=== PATIENT | female | born 1990 | race Hispanic/Latino ===

== ENCOUNTER 2018-02-06 10:10 | Day surgery (SDC) | payer BC ==
[2018-02-06] MEDS ORDERED: Lactated Ringer's 500 ML IV ONE ×2 (11:14→12:28)
[2018-02-06] MEDS ORDERED: Propofol 10 mg/ml Inj (20 ML) ONE ×2 (11:20→11:43)
[2018-02-06 11:35] VITALS: BMI 24.2
[2018-02-06 12:06] VITALS: TEMP 98.2
[2018-02-06 12:30] VITALS: O2SAT 100
[2018-02-06 13:13] VITALS: BP 101/48; PULSE 78; RESP 12
== END 2018-02-06 13:12 | disposition home or self-care (01) ==
LOC: C.ENDO 10:10
PROVIDERS: ATTEND Internal Medicine Gastroenterology
DX: K62.5 Hemorrhage of anus and rectum (principal); K62.89 Other specified diseases of anus and rectum; K64.8 Other hemorrhoids
CPT/HCPCS: 45380; 84703; 88305; J2704; J7120